=== PATIENT | male | born 1955 | race Caucasian/White ===

== ENCOUNTER → 2025-06-03 | Outpatient (CLI) | payer OTHER ==
[2025-06-03 15:39] LABS: Source, Urine Voided
[2025-06-03 18:01] LABS: Red Blood Cells, Urine 0-2 /hpf (0-2); White Blood Cells, Urine 0-2 /hpf (0-5)
== END ==
LOC: LAB SHORT 15:37 → LAB 15:37
PROVIDERS: Family Medicine
DX: R35.0 Frequency of micturition (principal)
CPT/HCPCS: 81015